=== PATIENT | male | born 1975 | race Caucasian/White ===

== ENCOUNTER 2023-11-27 12:38 | Inpatient (IN) | payer OTHER ==
[~2023-11-27] VITALS: Ht 162.6 cm; Wt 104.3 kg
[~2023-11-27 12:38] MED LIST: ACET-10509 PO; CITA20TA15 PO; DIVA500T1 PO; DOCU-299 PO; ERGO-30 PO; GABA300C PO; INSU100S22 SUBQ; METF-346 PO; METH-1681 PO; ONDA-188 PO; PANT40EC PO; TERA1CAP7 PO; TRAM50TA3 PO; TRAZ-343 PO
[2023-11-27 12:42] VITALS: BP 111/76; PULSE 83; RESP 16; TEMP 98.2; O2SAT 96
[2023-11-27 13:02] VITALS: O2SAT 98
[2023-11-27 13:15] LABS: BASOPHILS # (AUTO) 0.1 K/uL (0.00-0.22); EOSINOPHILS # (AUTO) 0.2 K/uL (0-0.4); EOSINOPHILS % (AUTO) 3.3 % (0.0-4.0); HEMATOCRIT 29.7 % (36-52); HEMOGLOBIN 9.9 g/dL (12.0-18.0); LYMPHOCYTES # (AUTO) 1.7 K/uL (2.0-11.5); LYMPHOCYTES % (AUTO) 31.1 % (20.5-51.1); MEAN CORPUSCULAR HEMOGLOBIN 28 pg (27-31); MEAN CORPUSCULAR HGB CONC 33 g/dL (33-37); MEAN CORPUSCULAR VOLUME 84.3 fL (80-94); MONOCYTES # (AUTO) 0.3 K/uL (0.8-1.0); MONOCYTES % (AUTO) 5.7 % (1.7-9.3); NEUTROPHILS # (AUTO) 3.3 K/uL (1.8-7.7); NEUTROPHILS % (AUTO) 58.9 % (42.2-75.2); PLATELET COUNT (AUTO) 193 K/uL (140-450); RED BLOOD CELL COUNT(AUTO) 3.52 MIL/uL (4.20-6.10); WHITE BLOOD COUNT (AUTO) 5.5 K/uL (4.8-10.8)
[2023-11-27 13:28] LABS: ANION GAP 10.4 (8-16); CALCIUM 8.4 mg/dL (8.5-10.1); CARBON DIOXIDE 23.8 mmol/L (21-32); CREATININE 3.2 mg/dL (0.6-1.3); POTASSIUM 5.2 mmol/L (3.5-5.1)
[2023-11-27 15:25] VITALS: O2SAT 98
[2023-11-27] MEDS: traMADol 50 MG TAB PO PRN (15:31)
[2023-11-27 17:33] VITALS: PULSE 70; RESP 18; O2SAT 97
[2023-11-27] MEDS ORDERED: DEXTROSE 50% 50 ML SYR IVP PRN (18:25)
[2023-11-27 20:00] VITALS: BP 139/76; PULSE 68; PULSE 71; RESP 18; TEMP 97.5; O2SAT 98
[2023-11-27] MEDS: BLOOD GLUCOSE MONITORING 1 DEV DEV FS SCH (20:54)
[2023-11-27] MEDS: DOCUSATE SODIUM 100 MG GELCAP PO SCH (20:58)
[2023-11-27] MEDS: traZODone 50 MG TAB PO SCH (20:58)
[2023-11-27] MEDS: TERAZOSIN 1 MG CAP PO SCH (20:59)
[2023-11-27] MEDS: INSULIN LANTUS 100 UNITS/ML 10 ML VIAL SUBQ SCH (21:02)
[2023-11-28] VITALS: BP 122/69; PULSE 62; PULSE 68; RESP 18; TEMP 97.1; O2SAT 98
[2023-11-28 04:00] VITALS: BP 149/72; PULSE 85; RESP 18; TEMP 96.3; O2SAT 98
[2023-11-28 07:05] LABS: BASOPHILS % (AUTO) 0.6 % (0.0-2.0); EOSINOPHILS # (AUTO) 0.2 K/uL (0-0.4); EOSINOPHILS % (AUTO) 3.2 % (0.0-4.0); HEMATOCRIT 28.8 % (36-52); HEMOGLOBIN 9.8 g/dL (12.0-18.0); LYMPHOCYTES # (AUTO) 2.1 K/uL (2.0-11.5); LYMPHOCYTES % (AUTO) 36.2 % (20.5-51.1); MEAN CORPUSCULAR HEMOGLOBIN 29 pg (27-31); MEAN CORPUSCULAR HGB CONC 34 g/dL (33-37); MEAN CORPUSCULAR VOLUME 83.5 fL (80-94); MONOCYTES # (AUTO) 0.4 K/uL (0.8-1.0); MONOCYTES % (AUTO) 6.8 % (1.7-9.3); NEUTROPHILS % (AUTO) 53.2 % (42.2-75.2); PLATELET COUNT (AUTO) 185 K/uL (140-450); RED BLOOD CELL COUNT(AUTO) 3.44 MIL/uL (4.20-6.10); RED CELL DISTRIBUTION WIDTH 13.8 % (11.6-13.7); WHITE BLOOD COUNT (AUTO) 5.7 K/uL (4.8-10.8)
[2023-11-28 07:33] LABS: ALBUMIN 2.5 g/dL (3.4-5.0); ANION GAP 10.9 (8-16); CALCIUM 8.1 mg/dL (8.5-10.1); CARBON DIOXIDE 24.7 mmol/L (21-32); CREATININE 3.2 mg/dL (0.6-1.3); PHOSPHORUS 4.7 mg/dL (2.5-4.9); POTASSIUM 5.6 mmol/L (3.5-5.1); TOTAL BILIRUBIN 0.1 mg/dL (0.0-1.0); TOTAL PROTEIN, SERUM 6.1 g/dL (6.4-8.2)
[2023-11-28 08:00] VITALS: BP 158/87; PULSE 60; PULSE 77; RESP 18; TEMP 97; O2SAT 97
[2023-11-28] MEDS: DIVALPROEX 500 MG TABER PO SCH (09:16)
[2023-11-28] MEDS: CITALOPRAM 20 MG TAB PO SCH (09:17)
[2023-11-28] MEDS: GABAPENTIN 300 MG CAP PO SCH (09:17)
[2023-11-28] MEDS: MEDS-TO-BEDS MC SCH (09:24)
[2023-11-28] MEDS: SODIUM ZIRCONIUM CYCLOSILICATE 10 GM POWD.PACK PO SCH (11:14)
[2023-11-28] MEDS: NACL 0.9% 1,000 ML IV SCH (11:21)
[2023-11-28 12:00] VITALS: BP 155/78; PULSE 66; RESP 18; TEMP 96.9; O2SAT 95
[2023-11-28 16:00] VITALS: BP 126/71; PULSE 63; PULSE 66; RESP 18; TEMP 96.9; O2SAT 96
[2023-11-28 20:00] VITALS: BP 137/72; PULSE 66; PULSE 69; PULSE 70; PULSE 72; RESP 18; RESP 19; TEMP 96.9; O2SAT 100; O2SAT 96
[2023-11-28 20:36] LABS: URINE TPRO CREAT RATIO 0.1 (0-0.20)
[2023-11-29] VITALS (8 sets, daily range): BP systolic 126–154; BP diastolic 65–85; PULSE 58–75; RESP 18–20; TEMP 96.2–98.2; O2SAT 96–99
[2023-11-29 07:06] LABS: BASOPHILS % (AUTO) 0.6 % (0.0-2.0); EOSINOPHILS # (AUTO) 0.2 K/uL (0-0.4); EOSINOPHILS % (AUTO) 3.2 % (0.0-4.0); HEMATOCRIT 30.1 % (36-52); HEMOGLOBIN 10.2 g/dL (12.0-18.0); LYMPHOCYTES # (AUTO) 2.6 K/uL (2.0-11.5); LYMPHOCYTES % (AUTO) 47.6 % (20.5-51.1); MEAN CORPUSCULAR HEMOGLOBIN 28 pg (27-31); MEAN CORPUSCULAR HGB CONC 34 g/dL (33-37); MEAN CORPUSCULAR VOLUME 84.2 fL (80-94); MONOCYTES # (AUTO) 0.4 K/uL (0.8-1.0); MONOCYTES % (AUTO) 6.5 % (1.7-9.3); NEUTROPHILS # (AUTO) 2.3 K/uL (1.8-7.7); NEUTROPHILS % (AUTO) 42.1 % (42.2-75.2); PLATELET COUNT (AUTO) 188 K/uL (140-450); RED BLOOD CELL COUNT(AUTO) 3.57 MIL/uL (4.20-6.10); RED CELL DISTRIBUTION WIDTH 13.9 % (11.6-13.7); WHITE BLOOD COUNT (AUTO) 5.6 K/uL (4.8-10.8)
[2023-11-29 07:48] LABS: ALBUMIN 2.7 g/dL (3.4-5.0); ANION GAP 10.6 (8-16); CALCIUM 8.2 mg/dL (8.5-10.1); CARBON DIOXIDE 27.3 mmol/L (21-32); CREATININE 3.6 mg/dL (0.6-1.3); MAGNESIUM 2.1 mg/dL (1.8-2.4); PHOSPHORUS 5.6 mg/dL (2.5-4.9); POTASSIUM 4.9 mmol/L (3.5-5.1); TOTAL BILIRUBIN 0.1 mg/dL (0.0-1.0); TOTAL PROTEIN, SERUM 6.4 g/dL (6.4-8.2)
[2023-11-29] MEDS: TAMSULOSIN 0.4 MG CAP PO SCH (10:36)
[2023-11-29 12:37] LABS: ANION GAP 8.4 (8-16); CARBON DIOXIDE 28.2 mmol/L (21-32); CREATININE 3.2 mg/dL (0.6-1.3); POTASSIUM 4.6 mmol/L (3.5-5.1)
[2023-11-29 14:10] LABS: APPEARANCE,URINE CLEAR (CLEAR); BILIRUBIN,URINE NEGATIVE (NEGATIVE); BLOOD, URINE 1+ (NEGATIVE); LEUKOCYTE ESTERASE ,URINE 1+ (NEGATIVE); NITRITE, URINE NEGATIVE (NEGATIVE); PROTEIN,URINE 2+ (NEGATIVE); UGLUCOSE TRACE (NEGATIVE); UROBILINOGEN,URINE 0.2 EU/dL (0.2 - 1)
[2023-11-29 14:11] LABS: COLOR,URINE AMBER (YELLOW)
[2023-11-29 14:23] LABS: BACTERIA,URINE 10-30 (MOD) /HPF (None Seen); SQUAMOUS EPITHELIAL CELL,UR 0-3 (FEW) /LPF (0-3 (FEW))
[2023-11-29] MEDS: INSULIN LISPRO SLIDING SCALE 100 UNITS/ML VIAL SUBQ PRN (20:13)
[2023-11-30] VITALS: BP 130/56; PULSE 71; RESP 18; TEMP 97; O2SAT 95
[2023-11-30 03:58] VITALS: PULSE 61
[2023-11-30 04:00] VITALS: BP 104/54; PULSE 63; RESP 18; TEMP 97.1; O2SAT 95
[2023-11-30 07:20] LABS: BASOPHILS % (AUTO) 0.5 % (0.0-2.0); EOSINOPHILS # (AUTO) 0.2 K/uL (0-0.4); EOSINOPHILS % (AUTO) 3.2 % (0.0-4.0); HEMOGLOBIN 9.8 g/dL (12.0-18.0); LYMPHOCYTES % (AUTO) 40.3 % (20.5-51.1); MEAN CORPUSCULAR HEMOGLOBIN 28 pg (27-31); MEAN CORPUSCULAR HGB CONC 34 g/dL (33-37); MONOCYTES # (AUTO) 0.3 K/uL (0.8-1.0); NEUTROPHILS # (AUTO) 2.4 K/uL (1.8-7.7); PLATELET COUNT (AUTO) 186 K/uL (140-450); RED BLOOD CELL COUNT(AUTO) 3.45 MIL/uL (4.20-6.10); WHITE BLOOD COUNT (AUTO) 4.9 K/uL (4.8-10.8)
[2023-11-30 08:00] VITALS: BP 135/73; PULSE 60; PULSE 62; RESP 17; TEMP 96.4; O2SAT 96; O2SAT 97
[2023-11-30 08:09] LABS: ANION GAP 11.1 (8-16); CALCIUM 8.1 mg/dL (8.5-10.1); CARBON DIOXIDE 25.7 mmol/L (21-32); CREATININE 3.2 mg/dL (0.6-1.3); POTASSIUM 4.8 mmol/L (3.5-5.1)
[2023-11-30 08:15] LABS: ALBUMIN 2.5 g/dL (3.4-5.0); MAGNESIUM 2.1 mg/dL (1.8-2.4); PHOSPHORUS 4.9 mg/dL (2.5-4.9); TOTAL BILIRUBIN 0.1 mg/dL (0.0-1.0); TOTAL PROTEIN, SERUM 6.1 g/dL (6.4-8.2)
[2023-11-30 12:00] VITALS: BP 142/57; PULSE 66; PULSE 67; RESP 18; TEMP 96.5; O2SAT 96
[2023-11-30] MEDS ORDERED: TAMS0.4C96 PO (13:04)
[2023-11-30 16:00] VITALS: BP 139/77; PULSE 68; PULSE 73; RESP 19; TEMP 97.2; O2SAT 97
== END 2023-11-30 20:50 | disposition home or self-care (01) | DRG 425 ==
LOC: MED 12:38 → MTU 14:40
PROVIDERS: ADMIT Hospitalist; ATTEND Hospitalist
DX: E87.5 Hyperkalemia (principal); N17.0 Acute kidney failure with tubular necrosis; E11.22 Type 2 diabetes mellitus with diabetic chronic kidney disease; E44.0 Moderate protein-calorie malnutrition; I82.591 Chronic embolism and thrombosis of other specified deep vein of right lower extremity; D64.9 Anemia, unspecified; E66.01 Morbid (severe) obesity due to excess calories; F31.9 Bipolar disorder, unspecified; I12.9 Hypertensive chronic kidney disease with stage 1 through stage 4 chronic kidney disease, or unspecified chronic kidney disease; N18.30 Chronic kidney disease, stage 3 unspecified; J45.909 Unspecified asthma, uncomplicated; Z79.899 Other long term (current) drug therapy; Z79.4 Long term (current) use of insulin; Z79.84 Long term (current) use of oral hypoglycemic drugs; Z68.39 Body mass index [BMI] 39.0-39.9, adult
CPT/HCPCS: 36415; 71045; 76770; 80048; 80053; 81001; 82570; 82948; 83036; 83540; 83735; 83880; 84100; 84484; 85025; 87081; 87086; 93005; 93970; 99285; J1644; J1815; Q0092